=== PATIENT | female | born 1985 | race African-American/Black ===

== ENCOUNTER 2018-09-17 22:21 | Emergency (ER) | payer MEDICAID ==
[~2018-09-17] VITALS: Ht 162.6 cm; Wt 68.0 kg
[2018-09-17 22:25] VITALS: Ht 162.6 cm; Wt 68.0 kg
[2018-09-18 00:57] VITALS: BP 116/62
== END 2018-09-18 00:57 | disposition home or self-care (01) ==
LOC: ED 22:21
DX: G43.909 Migraine, unspecified, not intractable, without status migrainosus (principal)
CPT/HCPCS: J1200; J1885; J2765; J7030

== ENCOUNTER 2018-09-18 12:22 | Emergency (ER) | payer MEDICAID ==
[~2018-09-18] VITALS: Ht 162.6 cm; Wt 68.0 kg
[2018-09-18 12:25] VITALS: Ht 162.6 cm; Wt 68.0 kg
[2018-09-18 14:43] VITALS: BP 99/42
== END 2018-09-18 14:43 | disposition home or self-care (01) ==
LOC: ED 12:22
DX: G43.909 Migraine, unspecified, not intractable, without status migrainosus (principal); Z98.890 Other specified postprocedural states
CPT/HCPCS: J0780; J1200; J3030; J7030

== ENCOUNTER 2020-01-05 16:23 | Emergency (ER) | payer MEDICAID ==
[~2020-01-05] VITALS: Ht 162.6 cm; Wt 65.3 kg
[2020-01-05 16:32] VITALS: Ht 162.6 cm; Wt 65.3 kg
[2020-01-05 17:04] VITALS: BP 103/62
== END 2020-01-05 17:04 | disposition home or self-care (01) ==
LOC: ED 16:23
DX: L03.311 Cellulitis of abdominal wall (principal)